=== PATIENT | female | born 1995 | race Caucasian/White ===

== ENCOUNTER 2022-09-17 21:14 | Observation (INO) | payer BC, SELFPAY ==
--- NOTE | ~2022-09-17 | US_ITS ---
Pelvic ultrasound. Clinical History: First trimester , vaginal bleeding Technique: Realtime transabdominal and transvaginal scanning of the pelvis was performed. Color flow Doppler and Doppler spectral analysis were performed. Findings: The uterus is anteverted. The endometrial stripe has a thickness of 20 mm. No intrauterine gestational sac is identified. There is fluid within the cervical canal. The right ovary measures 1.9 x 2.3 x 1.5 cm. No significant right ovarian or adnexal mass is seen. The left ovary measures 2.4 x 2.1 x 2.7 cm. No significant left ovarian or adnexal mass is seen. Vessel flow present in both ovaries on Doppler spectral analysis. There is no evidence of free fluid in the cul de sac. Impression: Thickened, heterogeneous endometrial stripe in the setting of positive test suggests sponta neous / in progress. Early normal or nonvisualized ectopic are fe lt to be less likely. Correlate clinically. Continued follow-up with serial beta hCG advised. Reviewed, dictated and finalized at location M. Impression: Thickened, heterogeneous endometrial stripe in the setting of positive pregnanc y test suggests spontaneous / in progress. Early normal pregnan cy or nonvisualized ectopic are felt to be less likely. Correlate cli nically. Continued follow-up with serial beta hCG advised.
[2022-09-17 21:16] VITALS: BP 125/73; PULSE 93; RESP 16; TEMP 36.1; O2SAT 100
--- NOTE | 2022-09-17 21:51 | ED.FEMALEGU ---
HPI - Female Genitourinary General Chief complaint: Vaginal Bleeding <Jessie Kwong PA-C - Last Filed: 09/18/22 01:09> Stated complaint: vaginal bleeding/10 weeks <Jessie Kwong PA-C - Last Filed: 09/18/22 01:09> Time Seen by Provider: 09/17/22 21:30 <Jessie Kwong PA-C - Last Filed: 09/18/22 01:09> History of Present Illness HPI Narrative: 27-year-old female G1, , LMP 2/5 who reports she is 10 weeks reports for vaginal bleeding that started yesterday. States the bleeding started as spotting and continued into today. She called her WALL ATTENDANT, Dr. German Martinez around 5pm advised the patient to come to the ED if she begins saturating 1 pad per hour. Patient reports since 5 PM she saturated 2 pads and the bleeding has increased. She has not had an ultrasound to confirm IUP. She is reporting associated nausea and suprapubic cramping. States she took 1g of Tylenol 4 hours ago with improvement. She denies dizziness, lightheadedness, back pain, urinary complaints, CP, SOB, concern for STDs. <Jessie Kwong PA-C - Last Filed: 09/18/22 01:09> Related Data Allergies/Adverse reactions: Allergies Allergy/AdvReac Type Severity Reaction Status Date / Time No Known Allergies Allergy Verified 09/17/22 21:15 <Jessie Kwong PA-C - Last Filed: 09/18/22 01:09> Review of Systems Review of Systems: CONSTITUTIONAL: Denies fever, chills EYES: Denies visual changes, redness, or discharge. ENT: Denies rhinorrhea, congestion, sore throat, or otalgia. CARDIOVASCULAR: Denies chest pain, palpitations, or edema. RESPIRATORY: Denies cough or dyspnea. GASTROINTESTINAL: See HPI GENITOURINARY: Denies dysuria or hematuria. SKIN: Denies rash or itching. MUSCULOSKELETAL: Denies back pain, joint pain, or myalgia. NEUROLOGIC: Denies headache, numbness, dizziness, or weakness. PSYCHIATRIC: Denies anxiety or depression. <Jessie Kwong PA-C - Last Filed: 09/18/22 01:09> Exam Narrative: GENERAL: Well-appearing, well-nourished, and in no acute distress. Patient resting comfortably in exam bed. She is pleasant and conversational HEAD: Normocephalic, atraumatic. EYES: PERRLA and EOMI. ENT: Nares clear, no rhinorrhea or epistaxis. Mucous membranes moist. Oropharynx without tonsillar hypertrophy exudate or other lesions. NECK: Supple. No adenopathy or masses. CHEST: Clear to auscultation. No respiratory distress. No wheezes rales or rhonchi HEART: Regular rate and rhythm. No murmur heard. Normal peripheral pulses. ABDOMEN: Soft, nontender, nondistended, normal active bowel sounds. : No lesions or rashes to external genitalia or vaginal canal. Blood clots visible in canal. Cervix not visualized due to blood. Multiple clots removed from vaginal vault. Cervix felt on bimanual and slightly opened, ~0.5cm. No CMT or adnexal masses appreciated. EXTREMITIES: Normal range of motion. No edema. SKIN: Warm, dry, no rash. NEURO: No focal deficits. Alert and oriented x3. PSYCH: Normal mood and affect. <Jessie Kwong PA-C - Last Filed: 09/18/22 01:09> Course FLEET SALES MANAGER/PA Physician Supervision This is a was performed by both a physician and an APC. I performed all aspects of the MDM as documented w/ the following additions: 27-year-old female coming in with vaginal bleeding. Transvaginal ultrasound showed prox of conception in the cervical canal. Given the ongoing bleeding the patient will be admitted to the hospital for D&C. All questions answered. Patient in agreement w/ disposition. <Israel Kaufman MD - Last Filed: 09/18/22 01:55> Vital Signs Vital signs: Vital Signs Temperature 96.9 F L 09/17/22 21:16 Pulse Rate 93 09/17/22 21:16 Respiratory Rate 16 09/17/22 21:16 Blood Pressure 125/73 09/17/22 21:16 Pulse Oximetry 100 09/17/22 21:16 Oxygen Delivery Room Air 09/17/22 21:16 Temperature 96.9 F L 09/17/22 21:16 Pulse Rate 86 09/18/22 00:36 Res
[2022-09-17] MEDS: METOCLOPRAMIDE HCL INJ 10 MG/2 ML VIAL IV PUSH (21:58)
[2022-09-17] MEDS: SODIUM CHLORIDE 0.9% IV 1,000 ML 999 ML IV CONT (21:58)
[2022-09-17 22:06] LABS: Basophils Percent Auto 0.2 % (0.2-1.2); Eosinophils Absolute Auto 0.1 K/mm3 (0-0.3); Eosinophils Percent Auto 0.6 % (0-4.4); Hematocrit 36.2 % (37.0-47.0); Hemoglobin 12.6 g/dL (12.0-15.0); Immature Granulocyte Absolute 0.04 K/mm3 (0.00-0.031); Immature Granulocyte Percent A 0.3 % (0-0.5); Lymphocytes Absolute Auto 1.54 K/mm3 (0.9-3.2); Lymphocytes Percent Auto 13.4 % (18.3-44.2); Mean Corpuscular HGB Conc 34.8 g/dl (32-36); Mean Corpuscular Hemoglobin 33.6 pg (26-34); Mean Corpuscular Volume 96.5 fl (80-100); Mean Platelet Volume 9.7 fl (7.4-10.4); Monocytes Absolute Auto 0.7 K/mm3 (0.1-0.6); Monocytes Percent Auto 6.1 % (2.6-8.5); Neutrophils Absolute Auto 9.2 K/mm3 (1.3-6.7); Neutrophils Percent Auto 79.4 % (45.5-73.1); Platelet Count Result 212 k/mm3 (150-375); Red Blood Count 3.75 M/mm3 (4.2-5.4); Red Cell Distribution Width 12.5 % (11.5-14.5); White Blood Count 11.5 K/mm3 (4.5-10.0)
[2022-09-17 23:02] LABS: Alanine Aminotransferase 13 U/L (6-35); Albumin Level 3.8 g/dL (3.5-5.1); Alkaline Phosphatase 49 U/L (38-126); Anion Gap 6 mmol/L (8-16); Aspartate Amino Transferase 21 U/L (14-36); Bilirubin,Total 0.5 mg/dL (0.2-1.3); Blood Urea Nitrogen 8 mg/dL (7-17); Calcium 8.3 mg/dL (8.4-10.2); Carbon Dioxide 22 mmol/L (22-30); Chloride 107 mmol/L (98-107); Estimated CRCL calculation 139 ml/min; Estimated Glomerular Filt Rate > 60; Glucose 94 mg/dL (65-110); Potassium 3.6 mmol/L (3.4-5.0); Sodium 135 mmol/L (137-145)
[2022-09-17 23:12] LABS: INR 1.1; Partial Thromboplastin Time 28.2 SECONDS (22.3-36.8); Prothrombin Time 13.9 Seconds (11.1-14.7)
[2022-09-17] MEDS: ACETAMINOPHEN 500 MG TABLET 1000 MG PO (23:18)
[2022-09-18] VITALS (11 sets, daily range): BP systolic 82–125; BP diastolic 54–76; PULSE 79–103; RESP 14–20; TEMP 36.1–37.1; O2SAT 94–100; BMI 24.2
[2022-09-18 00:05] LABS: Need Manual Microscopic Reviewed; Non Pathogenic Casts 0-2; RBC Urine >100 /hpf (0-2); Squamous Epithelial Cell Urine Occasional /hpf (Few)
[2022-09-18 00:07] LABS: Appearance Urine Cloudy (Clear); Color Urine Red (Yellow); pH Urine 5.5 (5.0-9.0)
[2022-09-18 00:08] LABS: Bilirubin Urine 2+ (Negative); Blood Urine 3+ (Negative); Glucose Urine UA Negative (Negative); Ketones Urine Negative (Negative); Leukocyte Esterase Ur 2+ LEU/UL (Negative); Nitrate Urine Positive (Negative); Protein Urine 3+ mg/dL (Negative); Urobilinogen Urine 0.2 mg/dL (<2.0)
[2022-09-18 00:09] LABS: Add Urine Microscopic? YES; Bacteria Urine 1+ /hpf
[2022-09-18] MEDS: SODIUM CHLORIDE 0.9% IV 1,000 ML 999 ML IV CONT (00:41)
[2022-09-18] MEDS: SODIUM CHLORIDE 0.9% IV 1,000 ML 125 ML IV CONT (00:50)
--- NOTE | 2022-09-18 06:22 | PM.IMHP ---
H&P: HPI History of Present Illness Date/Time: 09/18/22 06:22 Chief Complaint: Vaginal bleeding in early Narrative: this is 27-year-old 1 para 0 10 weeks since her last minutes. She was admitted with bleeding. Ultrasound shows retained products of conception and she will undergo suction D&C this morning. Risks and benefits reviewed [facility] Social History Social History Smoking status: Never smoker Lack of Transportation: No Lack of Food: Never True Current Housing: I Have Housing Concerned About Future Housing: No Difficulty Paying Gas/Electric Bills: No Difficulty Paying for Meds: No Currently Unemployed: No Education: Master's Degree or Higher Difficulty w/ Childcare or Family Care: No Spiritual care concerns: No Meds Home Medications and Allergies Home Medications Medication Instructions Recorded Confirmed Type No Home Medications 09/18/22 09/18/22 History Allergies Allergy/AdvReac Type Severity Reaction Status Date / Time No Known Allergies Allergy Verified 09/17/22 21:15 Vital Signs Vital Signs - 24 hr 09/17/22 21:16 09/18/22 00:36 09/18/22 02:00 Temperature 96.9 F L 96.9 F L Pulse Rate 93 86 97 Respiratory Rate 16 18 20 Blood Pressure 125/73 104/54 L 125/68 Pulse Oximetry 100 100 100 Oxygen Delivery Room Air Exam Const: General: cooperative, healthy appearing, comfortable and well groomed Nutritional Appearance: average body habitus Orientation/consciousness: oriented to person, oriented to place and oriented to time HENMT: Head: normal to inspection Resp: Effort & Inspection: normal respiratory effort Cardio: Rate: regular rate Rhythm: regular rhythm Heart sounds: S1 normal heart sound present and S2 normal heart sound present GI: Inspection: normal to inspection Auscultation: normal bowel sounds : Speculum Exam - Vagina: normal appearance of the vagina and vaginal bleeding Speculum Exam - Cervix: normal appearance of the cervix Bimanual exam- vagina & uterus: enlarged Bimanual Exam- Adnexa, other: normal adnexae H&P: Results Labs Labs: Short CBC 09/17/22 Range/Units 21:56 WBC 11.5 H (4.5-10.0) K/mm3 Hgb 12.6 (12.0-15.0) g/dL Hct 36.2 L (37.0-47.0) % Plt Count 212 (150-375) k/mm3 BMP 09/17/22 09/17/22 21:56 22:25 Sodium Cancelled 135 L Potassium Cancelled 3.6 Chloride Cancelled 107 Carbon Dioxide Cancelled 22 BUN Cancelled 8 Creatinine Cancelled 0.40 L Glucose Cancelled 94 Calcium Cancelled 8.3 L Liver Function 09/17/22 09/17/22 Range/Units 21:56 22:25 Total Bilirubin Cancelled 0.5 AST Cancelled 21 ALT Cancelled 13 Alkaline Phosphatase Cancelled 49 Albumin Cancelled 3.8 Urine 09/17/22 Range/Units 23:47 Urine Color Red H (Yellow) Urine Appearance Cloudy H (Clear) Urine pH 5.5 (5.0-9.0) Ur Specific [place] 1.010 (1.001-1.035) Urine Protein 3+ H (Negative) mg/dL Urine Glucose (UA) Negative (Negative) mg/dL Assessment and Plan Assessment and plan (1) Incomplete : Code(s): O03.4 - Incomplete spontaneous without complication Status: Acute Plan suction dilatation curettage
--- NOTE | 2022-09-18 06:24 | WPDHPUPDATE1 ---
History and Physical Update Update Date/Time: 09/18/22 06:24 History and Physical has been reviewed, including an updated exam of the patient. There are NO changes in the patient's condition. Risks, benefits, and alternatives have been discussed and questions answered. Patient agrees to proceed with procedure.
[2022-09-18 06:44] LABS: Hematocrit 35.2 % (37.0-47.0); Hemoglobin 11.8 g/dL (12.0-15.0)
--- NOTE | 2022-09-18 07:10 | WPDANESEPPF ---
Anes - Initial Pre Proc Eval Procedure: Operation Date: 09/18/22 07:30 Proposed Procedures p D&C Suction and Sharp - Vargas Martinez MD Date/Time: 09/18/22 07:10 Surgeon: Vargas Martinez MD Pre Op Diagnosis: , UTI Patient Data Age: 27 Gender: F Height: 1.6 m Weight: 62.1 kg Last Vital Signs Temp 97.2 F L 09/18/22 06:00 Pulse 92 09/18/22 06:00 Resp 18 09/18/22 06:00 BP 114/59 L 09/18/22 06:00 Pulse Ox 100 09/18/22 06:00 O2 Del Method Room Air 09/17/22 21:16 Allergies Allergy/AdvReac Type Severity Reaction Status Date / Time No Known Allergies Allergy Verified 09/17/22 21:15 Home Medications Medication Instructions Recorded Confirmed Type hydrocodone 5 mg-acetaminophen 325 1 tablet PO Q4H PRN pain #14 tabs 09/18/22 Rx mg tablet Laboratory Tests 09/17/22 09/17/22 09/17/22 21:56 21:56 22:25 WBC 11.5 K/mm3 H K/mm3 (4.5-10.0) RBC 3.75 M/mm3 L M/mm3 (4.2-5.4) Hgb 12.6 g/dL g/dL (12.0-15.0) Hct 36.2 % L % (37.0-47.0) MCV 96.5 fl fl (80-100) MCH 33.6 pg pg (26-34) MCHC 34.8 g/dl g/dl (32-36) RDW 12.5 % % (11.5-14.5) Plt Count 212 k/mm3 k/mm3 (150-375) MPV 9.7 fl fl (7.4-10.4) Immature Gran % (Auto) 0.3 % % (0-0.5) Neut % (Auto) 79.4 % H % (45.5-73.1) Lymph % (Auto) 13.4 % L % (18.3-44.2) [place] % (Auto) 6.1 % % (2.6-8.5) Eos % (Auto) 0.6 % % (0-4.4) Baso % (Auto) 0.2 % % (0.2-1.2) Lymph # (Auto) 1.54 K/mm3 K/mm3 (0.9-3.2) [place] # (Auto) 0.7 K/mm3 H K/mm3 (0.1-0.6) Eos # (Auto) 0.1 K/mm3 K/mm3 (0-0.3) Baso # (Auto) 0.0 K/mm3 K/mm3 (0.0-0.1) Abs Immat Gran (auto) 0.04 K/mm3 H K/mm3 (0.00-0.031) Absolute Neuts (auto) 9.2 K/mm3 H K/mm3 (1.3-6.7) Absolute Nucleated RBC 0.0 K/mm3 K/mm3 (0.0-0.012) Nucleated RBC % 0.0 % % (0.0-0.2) PT INR APTT Sodium Cancelled 135 mmol/L L mmol/L (137-145) Potassium Cancelled 3.6 mmol/L mmol/L (3.4-5.0) Chloride Cancelled 107 mmol/L mmol/L (98-107) Carbon Dioxide Cancelled 22 mmol/L mmol/L (22-30) Anion Gap Cancelled 6 mmol/L L mmol/L (8-16) BUN Cancelled 8 mg/dL mg/dL (7-17) Creatinine Cancelled 0.40 mg/dL L mg/dL (0.7-1.0) Estim Creat Clear Calc Cancelled 139 ml/min ml/min Estimated GFR Cancelled > 60 (59 - ) Glucose Cancelled 94 mg/dL mg/dL (65-110) Calcium Cancelled 8.3 mg/dL L mg/dL (8.4-10.2) Total Bilirubin Cancelled 0.5 mg/dL mg/dL (0.2-1.3) AST Cancelled 21 U/L U/L (14-36) ALT Cancelled 13 U/L U/L (6-35) Alkaline Phosphatase Cancelled 49 U/L U/L (38-126) Total Protein Cancelled 6.0 g/dL L g/dL (6.3-8.2) Albumin Cancelled 3.8 g/dL g/dL (3.5-5.1) Beta HCG, Quant 8347.50 mIU/ML mIU/ML Urine Color Urine Appearance Urine pH Ur Specific [place] Urine Protein Urine Glucose (UA) Urine Ketones Ur Blood (Man) Urine Nitrate Urine Bilirubin Urine Urobilinogen Add Ur Microanalysis Leukocyte Esterase Rfl Urine RBC Urine WBC Ur Squamous Epith Cells Urine Bacteria Urine Casts Blood Type Antibody Screen 09/17/22 09/17/22 09/17/22 22:51 22:51 23:47 WBC RBC Hgb Hct MCV MCH MCHC RDW Plt Count MPV Immature Gran % (Auto) Neut % (Aut
[2022-09-18] MEDS: SCOPOLAMINE 1.5 MG PATCH TRANSDERM (07:26)
[2022-09-18] MEDS: LACTATED RINGERS 1,000 ML 30 ML IV CONT (07:27)
[2022-09-18] MEDS: LIDOCAINE HCL 1% LOCAL INJ 20 ML VIAL 10 ML INFILTRATE (07:34)
--- NOTE | 2022-09-18 07:42 | W.PM.PROC2 ---
Procedure Note - Detailed Date of Procedure 09/18/22 Pre-op Diagnosis Incomplete , UTI Post-op Diagnosis Same Procedure Performed suction dilatation curettage Surgeon Vargas Martinez MD Anesthesia MAC and Local Indications a 27-year-old female in 1st trimester with incomplete AB Findings tissue consistent with products of conception. Description of Procedure Patient was prepped draped in normal sterile fashion placed in the dorsal lithotomy position. Under excellent IV sedation weighted speculum placed in posterior fornix vagina. Anterior lip of the cervix grasped with single-tooth tenaculum. Uterus sounded to 9cm. Serial dilatation with fragmented dilators performed followed by passes the 10. Suction curette of moderate amount of tissue was removed. When a good grating sound was heard the instruments were withdrawn patient. The patient awakened went to recovery in satisfactory condition. All sponge, needle, instrument counts were correct. There were no immediate complications and the patient is Rh positive Estimated Blood Loss 25 Drains No Packing No Pathology Yes Complications No immediate complications Condition Stable Disposition PACU
--- NOTE | 2022-09-18 07:44 | PM.DS ---
DS: Admitting Diagnosis Discharge Date 09/18/2022 Admitting Diagnosis incomplete miscarriage DS: Discharge Diagnosis Discharge Diagnosis (1) Incomplete : Code(s): O03.4 - Incomplete spontaneous without complication Status: Acute (2) Urinary tract infection: Qualifiers: Hematuria presence: with hematuria Urinary tract infection type: acute cystitis Qualified Code(s): N30.01 - Acute cystitis with hematuria Code(s): N39.0 - Urinary tract infection, site not specified Status: Acute DS: Summary Hospital Course Reason for hospitalization: patient was admitted with vaginal bleeding through the ER Hospital Course: patient underwent ultrasound which showed retained products of conception. She underwent suction dilatation curettage on 09/18/2022. Her hospital course was unremarkable. She remained afebrile. She was up, voiding without difficulty, eating regular diet, and generally without complaints. Time Spent with Patient Time attestation: Total time spent providing and/or coordinating discharge services: Exam Const: General: cooperative, healthy appearing and comfortable Nutritional Appearance: average body habitus Orientation/consciousness: oriented to person, oriented to place and oriented to time Resp: Effort & Inspection: normal respiratory effort Cardio: Rate: regular rate Rhythm: regular rhythm Heart sounds: S1 normal heart sound present and S2 normal heart sound present GI: Inspection: normal to inspection Auscultation: normal bowel sounds DS: Data Data Completed and Pending Labs on day of discharge: Labs from last 24 hours 09/18/22 09/17/22 09/17/22 06:22 23:47 22:51 WBC RBC Hgb 11.8 L Hct 35.2 L MCV MCH MCHC RDW Plt Count MPV Immature Gran % (Auto) Neut % (Auto) Lymph % (Auto) [place] % (Auto) Eos % (Auto) Baso % (Auto) Lymph # (Auto) [place] # (Auto) Eos # (Auto) Baso # (Auto) Abs Immat Gran (auto) Absolute Neuts (auto) Absolute Nucleated RBC Nucleated RBC % PT 13.9 INR 1.1 APTT 28.2 Sodium Potassium Chloride Carbon Dioxide Anion Gap BUN Creatinine Estim Creat Clear Calc Estimated GFR Glucose Calcium Total Bilirubin AST ALT Alkaline Phosphatase Total Protein Albumin Beta HCG, Quant Urine Color Red H Urine Appearance Cloudy H Urine pH 5.5 Ur Specific [place] 1.010 Urine Protein 3+ H Urine Glucose (UA) Negative Urine Ketones Negative Ur Blood (Man) 3+ H Urine Nitrate Positive H Urine Bilirubin 2+ H Urine Urobilinogen 0.2 Add Ur Microanalysis Reviewed Leukocyte Esterase Rfl 2+ H Urine RBC >100 H Urine WBC 11-20 H Ur Squamous Epith Cells Occasional Urine Bacteria 1+ Urine Casts 0-2 Blood Type Antibody Screen 09/17/22 09/17/22 09/17/22 22:51 22:25 21:56 WBC RBC Hgb Hct MCV MCH MCHC RDW Plt Count MPV Immature Gran % (Auto) Neut % (Auto) Lymph % (Auto) [place] % (Auto) Eos % (Auto) Baso % (Auto) Lymph # (Auto) [place] # (Auto) Eos # (Auto) Baso # (Auto) Abs Immat Gran (auto) Absolute Neuts (auto) Absolute Nucleated RBC Nucleated RBC % PT INR APTT Sodium 135 L Cancelled Potassium 3.6 Cancelled Chloride 107 Cancelled Carbon Dioxide 22 Cancelled Anion Gap 6 L Cancelled BUN 8 Cancelled Creatinine 0.40 L Cancelled Estim Creat Clear Calc 139 Cancelled Estimated GFR > 60 Cancelled Glucose 94 Cancelled Calcium 8.3 L Cancelled Total Bilirubin 0.5 Cancelled AST 21 Cancelled ALT 13 Cancelled Alkaline Phosphatase 49 Cancelled Total Protein 6.0 L Cancelled Albumin 3.8 Cancelled Beta HCG, Quant 8347.50 Urine Color Urine Appearance Urine pH Ur Specific [place] Urin
[2022-09-18] MEDS: POLYSACCHARIDE IRON COMPLEX 150 MG CAPSULE PO (10:22)
[2022-09-18] MEDS: MULTIVIT/MIN/PREN/FOL AC/IRON TABLET 1 TAB PO (10:23)
[2022-09-18] MEDS: TETANUS,DIPHTHERIA,AC PERTUSSIS ADULT (0.5 ML) BOOSTRIX IM (10:23)
== END 2022-09-18 11:05 | disposition home or self-care (01) ==
LOC: ANHED 09-18 00:34 → ANH3MEDSUR 09-18 01:33
PROVIDERS: Admitting Provider Obstetrics & Gynecology; Emergency Provider Physician Assistant; Visit Provider Obstetrics & Gynecology
PROC: (CPT 59812; principal; 2022-09-18 07:30)
DX: O03.4 Incomplete spontaneous abortion without complication (principal); O23.41 Unspecified infection of urinary tract in pregnancy, first trimester; N39.0 Urinary tract infection, site not specified; Z23 Encounter for immunization; Z3A.10 10 weeks gestation of pregnancy
CPT/HCPCS: 59812; 36415; 76801; 76817; 80053; 81001; 84702; 85014; 85018; 85025; 85610; 85730; 86850; 86900; 86901; 87086; 88305; 90715; 96361; 96365; 96375; 99285; A9270; G0378; J0696; J2250; J2405; J2704; J2765; J3010; J7030; J7120

== ENCOUNTER 2022-09-29 00:27 | Day surgery (SDC) | payer BC, SELFPAY ==
[2022-09-27 12:40] VITALS: BMI 23.9
--- NOTE | 2022-09-27 12:45 | PC.NURSE ---
Addendum entered by Shayla Quesada RN 09/27/22 12:49: NO MORE VITAMINS/SUPPLEMENTS UNTIL AFTER SURGERY. Original Note: Report to the Outpatient Waiting Room, entrance under the green pavilion located off [facility], at time 1330 on date 09/29/22. Planned Procedure Time: 1530. Time changes happen often and if your time is changed the preop area will call you the afternoon before. - You and your visitor will be asked to self-screen and do not enter if you have any COVID symptoms. - A mask is optional within the hospital at this time. Patients may have clear liquids (water, carbonated beverages, clear teas, apple juice) until 3 hours prior to surgery with a maximum of 20 ounces. - No food from midnight until time of surgery Take the following medications with a SIP of water the morning of surgery: NONE DO NOT STOP ANY OF YOUR OTHER PRESCRIPTION MEDICATIONS PRIOR TO SURGERY EXCEPT THE FOLLOWING Medications to discontinue per physician: N/A Date to take last dose: N/A Please no make-up, nail ivorian, hairspray, perfume, deodorant, or body powder the day of surgery. No jewelry (including any body piercings) or valuables the day of surgery, leave them at home. Please take a shower or bath the night before, or the morning of, surgery with an antibacterial soap. Wear comfortable, loose fitting clothing. - Jewelry must be removed prior to entering the operating room. Rings and piercings that are not removed may be cut off. - The hospital will not accept responsibility for valuables. - Please leave all valuables, including medications, at home the day of surgery. If you are going home after surgery, a licensed regional company hazmat tanker driver must drive you home. - NO public transportation without another adult if you receive anesthesia. - We recommend that an adult stay with you for 24 hours following discharge. - We also recommend that you do not drive, make important decision, drink alcoholic beverages, or take any drugs that were not prescribed by your health care provider for at least 24 hours after your discharge time. Follow any additional instructions given to you from your surgeon. If you or anyone in your household have experienced Covid symptoms in the past week, please notify your surgeon or the nurse liaison at the phone number below for possible testing. Telephone instructions given to PT - RD MONTEMAYOR and asked if any additional questions and then verbalized understanding. Patient advised to call surgeon office or pre surgery nurse liaison [phone] if any additional questions.
--- NOTE | 2022-09-28 16:19 | P.HP_ITS ---
H&P: HPI History of Present Illness Date/Time: 09/28/22 16:19 Chief Complaint: vaginal bleeding Narrative: a 27-year-old female readmitted for suction D&C. She underwent D&C week ago and products conception were found. She was seen in the office and noted to be bleeding moderately heavy. A piece of placenta was seen extruding from the cervix and removed. Her hemoglobin was 12+ but she continues to bleed and ultrasound shows what appears to be some tissue in the uterus. Risks and benefits were reviewed again she had all questions answered. She asked to proceed [facility] Social History Social History Smoking status: Never smoker Alcohol intake: current Alcohol use details: RARE WHEN NOT Substance use: never Substance use type: does not use Lack of Transportation: No Lack of Food: Never True Current Housing: I Have Housing Concerned About Future Housing: No Difficulty Paying Gas/Electric Bills: No Difficulty Paying for Meds: No Currently Unemployed: No Education: Master's Degree or Higher Difficulty w/ Childcare or Family Care: No Living arrangements: with family Spiritual care concerns: No Meds Home Medications and Allergies Home Medications Medication Instructions Recorded Confirmed Type ferrous sulfate 325 mg (65 mg 325 mg PO DAILY 09/27/22 09/27/22 History iron) tablet (Iron (ferrous sulfate)) ibuprofen 800 mg tablet 800 mg PO TID PRN Pain 09/27/22 09/27/22 History prenat.vits,jen,yte-lnbc-ilddi 1 tablet PO DAILY 09/27/22 09/27/22 History Allergies Allergy/AdvReac Type Severity Reaction Status Date / Time acetaminophen [From [place]] Allergy Itching Verified 09/27/22 12:39 hydrocodone [From [place]] Allergy Itching Verified 09/27/22 12:39 Exam Const: General: cooperative, healthy appearing, comfortable and well groomed Nutritional Appearance: average body habitus Orientation/consciousness: oriented to person, oriented to place and oriented to time HENMT: Head: normal to inspection Resp: Effort & Inspection: normal respiratory effort Cardio: Rate: regular rate Rhythm: regular rhythm Heart sounds: S1 normal heart sound present and S2 normal heart sound present GI: Inspection: normal to inspection Auscultation: normal bowel sounds : External Female Exam: normal external appearance Speculum Exam - Vagina: normal appearance of the vagina and vaginal bleeding Speculum Exam - Cervix: Cervical os open Bimanual exam- vagina & uterus: enlarged Assessment and Plan Assessment and plan (1) Incomplete : Code(s): O03.4 - Incomplete spontaneous without complication Status: Acute Plan suction dilatation and curettage
--- NOTE | 2022-09-29 06:03 | WPDHPUPDATE1 ---
History and Physical Update Update Date/Time: 09/29/22 06:03 History and Physical has been reviewed, including an updated exam of the patient. There are NO changes in the patient's condition. Risks, benefits, and alternatives have been discussed and questions answered. Patient agrees to proceed with procedure.
[2022-09-29 13:25] VITALS: BP 116/86; PULSE 103; RESP 16; TEMP 37.1; O2SAT 100; BMI 24.0
--- NOTE | 2022-09-29 14:14 | P.PNAN_ITS ---
Anes - Initial Pre Proc Eval Procedure: Operation Date: 09/29/22 15:30 Proposed Procedures p Suction Dilation and Curettage - Vargas Martinez MD Date/Time: 09/29/22 14:14 Surgeon: Vargas Martinez MD Pre Op Diagnosis: Retained Products Patient Data Age: 27 Gender: F Height: 1.6 m Weight: 61.25 kg Allergies Allergy/AdvReac Type Severity Reaction Status Date / Time hydrocodone [From [place]] Allergy Itching Verified 09/27/22 12:39 Home Medications Medication Instructions Recorded Confirmed Type ferrous sulfate 325 mg (65 mg 325 mg PO DAILY 09/27/22 09/27/22 History iron) tablet (Iron (ferrous sulfate)) ibuprofen 800 mg tablet 800 mg PO TID PRN Pain 09/27/22 09/27/22 History prenat.vits,jen,wib-[id number] 1 tablet PO DAILY 09/27/22 09/27/22 History Patient hx anesthesia problems: post op nausea/vomiting Family hx anesthesia problems: none Results Review: All pre-operative results and documents have been reviewed as part of the pre- operative evaluation. [facility] Social History Social History Smoking status: Never smoker Alcohol intake: current Alcohol use details: RARE WHEN NOT Substance use: never Substance use type: does not use Lack of Transportation: No Lack of Food: Never True Current Housing: I Have Housing Concerned About Future Housing: No Difficulty Paying Gas/Electric Bills: No Difficulty Paying for Meds: No Currently Unemployed: No Education: Master's Degree or Higher Difficulty w/ Childcare or Family Care: No Living arrangements: with family Spiritual care concerns: No Anes - Eval Final PreProcedure Day of Procedure 09/29/22 14:14 Patient weight: normal Heart: regular rate and rhythm Lungs: clear to auscultation Airway: Mallampati scale class II Neurological: alert and oriented Last oral intake: >/= 8 hours ASA classification: II Emergent: no Anesthetic plan: proceed Anesthesia type and monitoring: general GIVS and standard monitoring Results Review: All pre-operative results and documents have been reviewed as part of the pre- operative evaluation. Informed Consent: The patient's anesthetic plan and its attendant risks and benefits were discussed with the patient/family/POA. Questions were solicited and answers provided to the satisfaction of the patient/family/POA.
[2022-09-29] MEDS: ACETAMINOPHEN 500 MG TABLET 1000 MG PO (14:30)
[2022-09-29] MEDS: LACTATED RINGERS 1,000 ML 30 ML IV CONT (14:32)
[2022-09-29] MEDS: SCOPOLAMINE 1.5 MG PATCH TRANSDERM (14:36)
[2022-09-29] MEDS: ceFAZolin SODIUM 1 GM VIAL IV PUSH (15:55)
[2022-09-29] MEDS: LIDOCAINE HCL 1% LOCAL INJ 20 ML VIAL 10 ML INFILTRATE (15:56)
--- NOTE | 2022-09-29 16:05 | P.OP_ITS ---
Procedure Note - Detailed Date of Procedure 09/29/22 Pre-op Diagnosis Retained Products Post-op Diagnosis Same Procedure Performed Suction dilatation curettage Surgeon Vargas Martinez MD Anesthesia MAC and Local Indications this is a 27-year-old female with retained products of conception following miscarriage Findings uterus sounded 9cm. Small chunk of placental tissue Description of Procedure patient was prepped draped in normal sterile fashion placed in the dorsal lithotomy position. Under excellent IV sedation weighted speculum placed in posterior fornix of vagina. Anterior lip of the cervix grasped with a single- tooth tenaculum. 2.5cc of 1% xylocaine anesthesia placed at 2, 4, 8:10 a.m. of the cervix. Uterus sounded to 9cm. Serial dilatation with fragmented dilators performed followed by passage of the 10. Suction curette a moderate soak of placental like tissue was removed. When no further tissue removed and a grating sound was heard the instruments withdrawn. The patient was awakened went to recovery in satisfactory condition. Blood loss was estimated at5cc. All sponge, needle, instrument counts were correct. There were no immediate complications Estimated Blood Loss 5 Drains No Packing No Pathology Yes Complications No immediate complications Condition Stable Disposition PACU
[2022-09-29 16:11] VITALS: BP 111/67; PULSE 98; RESP 12; O2SAT 100
[2022-09-29 16:40] VITALS: BP 106/71; PULSE 85; RESP 14; O2SAT 100
== END 2022-09-29 17:09 | disposition home or self-care (01) ==
PROVIDERS: Visit Provider Obstetrics & Gynecology
PROC: (CPT 59812; principal; 2022-09-29 15:30)
DX: O03.4 Incomplete spontaneous abortion without complication (principal)
CPT/HCPCS: 59812; 88305; A9270; J0690; J2001; J2250; J2405; J2704; J3010; J7120

== ENCOUNTER 2023-09-13 06:30 | Inpatient (IN) | payer BC, SELFPAY ==
[2023-09-13] VITALS (229 sets, daily range): BP systolic 91–142; BP diastolic 40–106; PULSE 78–201; RESP 17–19; TEMP 36.6–37.2; O2SAT 76–100; BMI 29.2
[2023-09-13] MEDS: LACTATED RINGERS 1,000 ML 125 ML IV CONT ×3 (07:19→18:53)
--- NOTE | 2023-09-13 07:26 | P.HP_ITS ---
H&P: HPI History of Present Illness Date/Time: 09/13/23 07:26 Chief Complaint: Term Narrative: this is a 28-year-old 2 para 0 whose EDC is 09/11/2023 confirmed by 7 week ultrasound presents at 40 2 7th weeks gestation for induction of labor. She is negative for group B strep in her has been otherwise uncomplicated. [facility] Family History Family History Other Patient denies significant medical history Social History Social History Smoking status: Never smoker Alcohol intake: current Alcohol use details: RARE WHEN NOT Substance use: never Substance use type: does not use Lack of Transportation: No Lack of Food: Never True Current Housing: I Have Housing Concerned About Future Housing: No Difficulty Paying Gas/Electric Bills: No Difficulty Paying for Meds: No Currently Unemployed: No Education: Master's Degree or Higher Difficulty w/ Childcare or Family Care: No Living arrangements: with family Spiritual care concerns: No Meds Home Medications and Allergies Home Medications Medication Instructions Recorded Confirmed Type ferrous sulfate 325 mg (65 mg 325 mg PO BID 09/27/22 09/27/22 History iron) tablet (Iron (ferrous sulfate)) prenat.vits,jen,vsu-gynb-bjhio 1 tablet PO DAILY 09/27/22 09/29/22 History Allergies Allergy/AdvReac Type Severity Reaction Status Date / Time hydrocodone [From [place]] Allergy Itching Verified 08/20/23 14:40 Vital Signs Vital Signs - 24 hr 09/13/23 07:15 Pulse Rate 104 H Blood Pressure 130/81 Exam Const: General: cooperative, healthy appearing and comfortable Nutritional Appearance: average body habitus Orientation/consciousness: oriented to person, oriented to place and oriented to time Resp: Effort & Inspection: normal respiratory effort Cardio: Rate: regular rate Rhythm: regular rhythm Heart sounds: S1 normal heart sound present and S2 normal heart sound present GI: Inspection: normal to inspection ( Soft gravid uterus) : External Female Exam: normal external appearance Speculum Exam - Vagina: normal appearance of the vagina Speculum Exam - Cervix: normal sylvia earance of the cervix ( cervix 3/75/2. Attempted a ROM but no fluid. FHTs reassuring) Assessment and Plan Assessment and plan (1) Term : Code(s): Z34.90 - Encounter for supervision of normal , unspecified, unspecified trimester Status: Acute Plan medical induction of labor. Spontaneous vaginal delivery is expected. She is an epidural candidate
--- NOTE | 2023-09-13 07:27 | LDADM ---
This patient, Priti Schofield, was admitted to Labor/Delivery/Recovery 103 on 09/13/23 at 06:30. Plans for labor, pain management and were discussed with patient. Patient/family oriented to hospital policies and general routines including ID bracelet, bed and alarms, visiting hours, pain management, procedures, bathroom and other care routines, personal items, smoking policy, room service/diet and guest tray routines, security routines, and visiting hours. Patient/Family are encouraged to report perceived risks to care and to ask questions if they do not understand what they are told or what they should do. See OBIX for further documentation.
[2023-09-13] MEDS: OXYTOCIN 30 UNITS/NS 500 ML 30 UNITS/500 ML BAG 6 UNITS IV CONT (07:43)
[2023-09-13 08:18] LABS: Basophils Percent Auto 0.2 % (0.2-1.2); Eosinophils Absolute Auto 0.1 K/mm3 (0-0.3); Eosinophils Percent Auto 0.7 % (0-4.4); Hematocrit 33.5 % (37.0-47.0); Hemoglobin 11.1 g/dL (12.0-15.0); Immature Granulocyte Absolute 0.06 K/mm3 (0.00-0.031); Immature Granulocyte Percent A 0.7 % (0-0.5); Lymphocytes Absolute Auto 1.51 K/mm3 (0.9-3.2); Lymphocytes Percent Auto 17.1 % (18.3-44.2); Mean Corpuscular HGB Conc 33.1 g/dl (32-36); Mean Corpuscular Hemoglobin 31.9 pg (26-34); Mean Corpuscular Volume 96.3 fl (80-100); Mean Platelet Volume 11.1 fl (7.4-10.4); Monocytes Absolute Auto 0.5 K/mm3 (0.1-0.6); Monocytes Percent Auto 5.7 % (2.6-8.5); Neutrophils Absolute Auto 6.7 K/mm3 (1.3-6.7); Neutrophils Percent Auto 75.6 % (45.5-73.1); Platelet Count Result 117 k/mm3 (150-375); Red Blood Count 3.48 M/mm3 (4.2-5.4); Red Cell Distribution Width 18.2 % (11.5-14.5); White Blood Count 8.8 K/mm3 (4.5-10.0)
[2023-09-13 09:02] LABS: Rapid Plasma Reagin Non-Reactive (NonReactive)
--- NOTE | 2023-09-13 11:53 | PM.OBPNLAB ---
Pain Control Date/time seen: 09/13/23 11:53 Pain control: tolerating well and epidural Pelvic Exam Dilation (cm): 4 Effacement (%): 75 station: -1 Amniotic membrane status: Leaking Contractions Monitor mode: Internal
--- NOTE | 2023-09-13 16:01 | PM.OBPNLAB ---
Pain Control Date/time seen: 09/13/23 16:01 Pain control: tolerating well Pelvic Exam Dilation (cm): 4 Effacement (%): 75 station: -1 Amniotic membrane status: Leaking Contractions Monitor mode: Internal Contraction frequency: 3 Contraction pattern: Regular
--- NOTE | 2023-09-13 17:36 | WPDANESEPP ---
Anes - Eval Pre Procedure Procedure: labor epidural Date/Time: 09/13/23 17:36 Surgeon: ken Preop Diagnosis: pain during labor Pre Op Diagnosis: IOL Patient Data Age: 28 Gender: F Height: 1.6 m Weight: 75 kg Last Vital Signs Temp 36.8 C 09/13/23 15:30 Pulse 105 H 09/13/23 17:30 Resp 18 09/13/23 09:28 BP 124/78 09/13/23 17:30 Pulse Ox 100 09/13/23 17:35 O2 Del Method Room Air 09/13/23 07:27 Allergies Allergy/AdvReac Type Severity Reaction Status Date / Time hydrocodone [From [place]] Allergy Itching Verified 09/13/23 09:47 Home Medications Medication Instructions Recorded Confirmed Type ferrous sulfate 325 mg (65 mg 325 mg PO BID 09/27/22 09/13/23 History iron) tablet (Iron (ferrous sulfate)) prenat.vits,jen,ozs-wwbc-tnxsv 1 tablet PO DAILY 09/27/22 09/13/23 History Laboratory Tests 09/13/23 09/13/23 06:43 06:44 WBC 8.8 K/mm3 (4.5-10.0) RBC 3.48 L M/mm3 (4.2-5.4) Hgb 11.1 L g/dL (12.0-15.0) Hct 33.5 L % (37.0-47.0) MCV 96.3 fl (80-100) MCH 31.9 pg (26-34) MCHC 33.1 g/dl (32-36) RDW 18.2 H % (11.5-14.5) Plt Count 117 L k/mm3 (150-375) MPV 11.1 H fl (7.4-10.4) Immature Gran % (Auto) 0.7 H % (0-0.5) Neut % (Auto) 75.6 H % (45.5-73.1) Lymph % (Auto) 17.1 L % (18.3-44.2) [place] % (Auto) 5.7 % (2.6-8.5) Eos % (Auto) 0.7 % (0-4.4) Baso % (Auto) 0.2 % (0.2-1.2) Lymph # (Auto) 1.51 K/mm3 (0.9-3.2) [place] # (Auto) 0.5 K/mm3 (0.1-0.6) Eos # (Auto) 0.1 K/mm3 (0-0.3) Baso # (Auto) 0.0 K/mm3 (0.0-0.1) Abs Immat Gran (auto) 0.06 H K/mm3 (0.00-0.031) Absolute Neuts (auto) 6.7 K/mm3 (1.3-6.7) Absolute Nucleated RBC 0.000 K/mm3 (0.0-0.012) Nucleated RBC % 0.0 % (0.0-0.2) RPR Non-reactive (NonReactive) Blood Type A Positive Antibody Screen Negative Patient hx anesthesia problems: post op nausea/vomiting Family hx anesthesia problems: none Results Review: All pre-operative results and documents have been reviewed as part of the pre-operative evaluation. [facility] Family History Family History Other Patient denies significant medical history Social History Social History Smoking status: Never smoker Second hand tobacco smoke exposure: No Alcohol intake: current Alcohol use details: RARE WHEN NOT Substance use: never Substance use type: does not use Do You Feel Safe in your Home?: Yes Lack of Transportation: No Lack of Food: Never True Current Housing: I Have Housing Concerned About Future Housing: No Difficulty Paying Gas/Electric Bills: No Difficulty Paying for Meds: No Currently Unemployed: No Education: Master's Degree or Higher Difficulty w/ Childcare or Family Care: No Living arrangements: with family Spiritual care concerns: No Exam Day of Procedure 09/13/23 17:36
[2023-09-13] MEDS: FAMOTIDINE 20 MG/2 ML VIAL IV PUSH (21:00)
--- NOTE | 2023-09-13 21:37 | PM.OBPNLAB ---
Pain Control Date/time seen: 09/13/23 21:37 Pain control: tolerating well and epidural Comments: All episodes a deceleration noted is now recovered with fluids resuscitation. 0 proceed low-transverse section. Risks and benefits reviewed with mother Pelvic Exam Dilation (cm): 4 Effacement (%): 75 station: -1 Amniotic membrane status: Leaking Contractions Monitor mode: Internal Contraction frequency: 3 Contraction pattern: Regular
--- NOTE | 2023-09-13 21:38 | PM.DS ---
DS: Admitting Diagnosis Discharge Date 09/16/2023 Admitting Diagnosis term DS: Discharge Diagnosis Discharge Diagnosis (1) Term : Code(s): Z34.90 - Encounter for supervision of normal , unspecified, unspecified trimester Status: Acute (2) intolerance to labor, delivered, current hospitalization: Code(s): O77.9 - Labor and delivery complicated by stress, unspecified Status: Acute DS: Summary Hospital Course Reason for hospitalization: Patient was admitted for induction of labor 4113 and Hospital Course: patient underwent low-transverse section. Her hospital course was unremarkable. She remained afebrile. She was up, eating regular diet, ambulating, voiding without difficulty, gentle without complaints. Time Spent with Patient Time attestation: Total time spent providing and/or coordinating discharge services: Exam Const: General: cooperative, healthy appearing and comfortable Nutritional Appearance: average body habitus Orientation/consciousness: oriented to person, oriented to place and oriented to time HENMT: Head: normal to inspection Resp: Effort & Inspection: normal respiratory effort Cardio: Rate: regular rate Rhythm: regular rhythm Heart sounds: S1 normal heart sound present and S2 normal heart sound present GI: Inspection: normal to inspection and incision ( wound clean dry and intact) DS: Data Data Completed and Pending Labs on day of discharge: Labs from last 24 hours 09/13/23 09/13/23 06:44 06:43 WBC 8.8 RBC 3.48 L Hgb 11.1 L Hct 33.5 L MCV 96.3 MCH 31.9 MCHC 33.1 RDW 18.2 H Plt Count 117 L MPV 11.1 H Immature Gran % (Auto) 0.7 H Neut % (Auto) 75.6 H Lymph % (Auto) 17.1 L [place] % (Auto) 5.7 Eos % (Auto) 0.7 Baso % (Auto) 0.2 Lymph # (Auto) 1.51 [place] # (Auto) 0.5 Eos # (Auto) 0.1 Baso # (Auto) 0.0 Abs Immat Gran (auto) 0.06 H Absolute Neuts (auto) 6.7 Absolute Nucleated RBC 0.000 Nucleated RBC % 0.0 RPR Non-reactive Blood Type A Positive Antibody Screen Negative Discharge Plan Discharge Attending physician on discharge: Vargas Medina Discharging Clinician: Cintia Reyes Patient Disposition: Home, Self-Care Activity: may shower and pelvic rest Diet: heart healthy Wound Care Instructions: follow printed instructions Discharge Instructions: Education: Mom and Baby Guide Given to: Mother Follow-Up: Call your delivering provider's office for an appointment to be seen in: 1 Week Mom and baby should come to the [facility] for the follow-up appointment. Appointment Date/Time: Sunday, September 17, 2023 at 3:30 pm What to expect at your follow-up visit: Physical Assessment Call [phone] if you are unable to keep your appointment time. BREAST CARE: * Wear a snug supportive bra. * For engorgement discomfort: Breast Feeding: * Apply warm moist washcloths * Express milk as needed to relieve engorgement * Wear loose clothing Bottle Feeding: * May apply ice packs * For sore nipples: * Identify correct latch-on * Apply warm moist washcloths before and after nursing * Air dry nipples after nursing * May apply Lansinoh cream to nipples ABDOMINAL INCISION: (if applicable) * Allow incision to air dry * Do NOT use lotions for powders on your incision * When showering, allow soap and water to run over the incision, but do not wash incision EPISIOTOMY/PERINEAL CARE: * Until bleeding stops, use your karen bottle after urinating * Change your pad frequently throughout the day * You may take sitz baths several times a day (fill your bathtub with warm water and soak for 20 minutes.) Do NOT bathe in the water * No tub baths until seen by your physician - You may shower ACTIVITY: * Rest as much as
[2023-09-13] MEDS: ONDANSETRON INJ 4 MG/2 ML VIAL IV PUSH (21:40)
--- NOTE | 2023-09-13 22:02 | P.PNAN_ITS ---
Anes - Eval Final PreProcedure Day of Procedure 09/13/23 22:02 Patient weight: overweight Heart: regular rate and rhythm Lungs: clear to auscultation and normal air movement Airway: Mallampati scale class II Neurological: alert and oriented Last oral intake: >/= 8 hours ASA classification: II Emergent: no Anesthetic plan: proceed Anesthesia type and monitoring: regional epidural and standard monitoring Other findings: intolerance to labor - C section Results Review: All pre-operative results and documents have been reviewed as part of the pre- operative evaluation. Informed Consent: The patient's anesthetic plan and its attendant risks and benefits were discussed with the patient/family/POA. Questions were solicited and answers provided to the satisfaction of the patient/family/POA.
--- NOTE | 2023-09-13 22:41 | W.PM.OBCSD ---
OB - Delivery Note Procedure Delivery date: 09/13/23 Pre-op diagnosis: Failed Induction of Labor and Other ( intolerance to labor) Post-op Diagnosis: Same Induction method: AROM Delivery augmentation: Pitocin Delivery monitor: External FHT, Internal FHT and Internal Uterine Prior to decision for section, ACOG/SMFM labor guidelines were considered and discussed with the patient and staff. Decision made to proceed with the section.: Yes Procedure Performed: Primary Surgeon: Vargas Martinez MD Anesthesia type: Epidural Description of Procedure/Findings: visualize the reduction labor earlier a removed for over 24. She had a [id number] head prolonged late deceleration which responded to repositioning fluid resuscitation and oxygen. A she had an intrauterine pressure catheter in her been very little change related non-reassuring findings decision was made for low-transverse section. The baby did recover to she was prepped and draped in normal sterile fashion placed in the supine position. Her epidural was bolus and a Pfannenstiel incision made progressive layers of fascia. Fascia incised midline cure alka Goodman bilaterally. Underlying muscles sharply dissected. Parietal peritoneum low by Diana clamps and by sharp dissection carried superiorly and inferiorly dome of the bladder. Bladder blade placed. Bladder flap formed. Laterally returned. Low-transverse incision made the head delivered there position. Anterior posterior shoulder delivered spontaneously. Cord clamped cut and passed off the table excellent cry given Apgars of 8 [id number] and 8 [id number]. Cord blood was drawn. Fluid delivered intact manually uterus delivered from the abdomen wrapped in a moist towel. After assuring no membranes or debris remained in the uterus, uterus closed with continuous running locking 0 Vicryl from lateral edge to lateral edge. Follow this followed by 2nd imbricating running locking 0 Vicryl from lateral edge to lateral edge. hemostasis was assured. The uterus was somewhat boggy and 20units Pitocin placed in the EBL from the uterus. Methergine was given IM. Uterus returned the abdomen after inspecting the uterine incision. The tubes and ovaries appeared within normal limits. The laps removed and accounted for. The fascia closed with continuous running 0 Vicryl from lateral edge to lateral edge. This followed by closing the skin with 4-0 Monocryl glue. QBL was 745. Patient and baby are doing fine at the time of dictation there were no immediate complications all sponge, needle, instrument counts were correct Specimen: No Estimated Blood Loss: 745 Drains: No Packing: No Pathology: None sent Complications: No immediate complications Condition: Stable Disposition: Floor Baby Date of : 09/13/23 Time of : 22:15 Weeks of gestation at delivery: 39 gender: Female Weight (pounds): 7 Weight (ounces): 12 presentation: vertex position: Right Occiput Anterior Placenta delivery description: Manual Removal Cord Vessel Description: 3 Vessels score one minute: 8 score five minutes: 8
[2023-09-13] MEDS: ceFAZolin 2 GM/D5W 50 ML 2 GM/50 ML BAG IVPB (22:50)
[2023-09-14] VITALS (10 sets, daily range): BP systolic 98–117; BP diastolic 37–73; PULSE 73–113; RESP 16–18; TEMP 36.7–37.3; O2SAT 98–99
[2023-09-14] MEDS: KETOROLAC 30 MG/ML VIAL (*BKC) (00:31)
--- NOTE | 2023-09-14 01:47 | PC.NURSE ---
heart tones from c/s did not flow over. Copy of strip placed in Physical maternal chart. Heart tones noted to be 150 with moderate variability in OR prior to section.
[2023-09-14 05:51] LABS: Basophils Percent Auto 0.2 % (0.2-1.2); Eosinophils Percent Auto 0.1 % (0-4.4); Hematocrit 26.8 % (37.0-47.0); Hemoglobin 8.8 g/dL (12.0-15.0); Immature Granulocyte Absolute 0.06 K/mm3 (0.00-0.031); Immature Granulocyte Percent A 0.4 % (0-0.5); Lymphocytes Absolute Auto 1.31 K/mm3 (0.9-3.2); Mean Corpuscular HGB Conc 32.8 g/dl (32-36); Mean Corpuscular Hemoglobin 32.2 pg (26-34); Mean Corpuscular Volume 98.2 fl (80-100); Mean Platelet Volume 11.1 fl (7.4-10.4); Monocytes Absolute Auto 0.6 K/mm3 (0.1-0.6); Monocytes Percent Auto 3.9 % (2.6-8.5); Neutrophils Absolute Auto 12.6 K/mm3 (1.3-6.7); Neutrophils Percent Auto 86.4 % (45.5-73.1); Platelet Count Result 107 k/mm3 (150-375); Red Blood Count 2.73 M/mm3 (4.2-5.4); Red Cell Distribution Width 17.6 % (11.5-14.5); White Blood Count 14.6 K/mm3 (4.5-10.0)
--- NOTE | 2023-09-14 06:45 | P.PNOB_ITS ---
OB - PN: Subj Subjective Date/time seen: 09/14/23 06:45 Patient comments: no complaints and pain well controlled baby status: doing well OB - PN: Obj Data Labs 09/14/23 04:38 Labs: Laboratory Results - last 24 hr 09/13/23 09/13/23 09/14/23 06:43 06:44 04:38 WBC 8.8 14.6 H RBC 3.48 L 2.73 L Hgb 11.1 L 8.8 L Hct 33.5 L 26.8 L MCV 96.3 98.2 MCH 31.9 32.2 MCHC 33.1 32.8 RDW 18.2 H 17.6 H Plt Count 117 L 107 L MPV 11.1 H 11.1 H Immature Gran % (Auto) 0.7 H 0.4 Neut % (Auto) 75.6 H 86.4 H Lymph % (Auto) 17.1 L 9.0 L [place] % (Auto) 5.7 3.9 Eos % (Auto) 0.7 0.1 Baso % (Auto) 0.2 0.2 Lymph # (Auto) 1.51 1.31 [place] # (Auto) 0.5 0.6 Eos # (Auto) 0.1 0.0 Baso # (Auto) 0.0 0.0 Abs Immat Gran (auto) 0.06 H 0.06 H Absolute Neuts (auto) 6.7 12.6 H Absolute Nucleated RBC 0.000 0.000 Nucleated RBC % 0.0 0.0 % Immature Plt Fraction 6.0 RPR Non-reactive Blood Type A Positive Antibody Screen Negative OB - PN A/P Plan day: 1 Plan: routine care Comments: start iron Time Spent With Patient Time: Total time spent is greater than 50% in coordination of care (as documented) at patient's floor/unit and/or counseling patient: Time with patient: less than 15 minutes Exam Const: General: cooperative, healthy appearing and comfortable Nutritional Appearance: average body habitus Orientation/consciousness: oriented to person, oriented to place and oriented to time HENMT: Head: normal to inspection Resp: Effort & Inspection: normal respiratory effort GI: Inspection: normal to inspection and incision (cdi)
[2023-09-14] MEDS: ACETAMINOPHEN 325 MG TABLET 650 MG PO ×3 (07:28→19:42)
[2023-09-14] MEDS: KETOROLAC 15 MG/ML VIAL (*BKC) IV PUSH ×3 (07:28→19:42)
[2023-09-14] MEDS: SIMETHICONE 80 MG TAB.CHEW PO ×3 (07:28→19:42)
[2023-09-14] MEDS: POLYSACCHARIDE IRON COMPLEX 150 MG CAPSULE PO ×2 (07:28→19:42)
[2023-09-14] MEDS: DOCUSATE SODIUM 100 MG CAPSULE PO ×2 (07:29→19:42)
[2023-09-14] MEDS: MULTIVIT/MIN/PREN/FOL AC/IRON TABLET 1 TAB PO (07:29)
--- NOTE | 2023-09-14 07:57 | WPDANLDPN2 ---
Anes-Prog Note L&D Date/Time: 09/14/23 07:57 Comfortable throughout: labor and section Neuraxial method: epidural Epidural/Spinal procedure site: clean & non-tender Neuro status: Neuro function grossly intact. Cardiovascular status: normal Respiratory status: normal Airway patency: baseline Mental status: baseline Post-Op hydration status: normal Vital Signs: Last Vital Signs Temp 36.7 C 09/14/23 02:00 Pulse 104 H 09/14/23 02:00 Resp 18 09/14/23 02:00 BP 109/65 09/14/23 02:00 Pulse Ox 98 09/14/23 02:00 O2 Del Method Room Air 09/14/23 02:00 Pain score (VAS): 2 I/O: Intake & Output 09/13/23 09/13/23 09/14/23 15:59 23:59 07:59 Intake Total 700 745.8 Output Total 745 886 Balance 700 0.8 -886 Post-procedural complaints: none Patient feedback: Patient satisfied with anesthetic care.
--- NOTE | 2023-09-14 07:58 | WPDANLDNPN2 ---
Anes-Prog Note L&D-Neuraxial Date/Time: 09/14/23 07:58 Neuraxial medications: epidural PF morphine Opiod-related complaints: none Patient feedback: Patient satisfied with post-operative pain management.
--- NOTE | 2023-09-14 10:14 | PC.NURSE ---
[id number] Introductions were made, then consulted with patient to assess needs related to . Discussed with mother her?plans to feed?her infant and the?experience so far. is less than 12 hours old and demonstrates typical sleepiness and reluctance to breastfeed. Mother was reclined to allow for her to use instincts to find the breast. A nipple shield was introduced on the awake overnight monitor and mother does have pinching injuries to the left breast from nipple shield use. will suck with the nipple shield, however; will not latch appropriately to the shield as to not cause pain to mother. Education was given on the skills of hand expression. Nipples do not rachel completely and the tissue is dense. Infant demonstrates opening wide but does not latch at this time. Encouraged understanding of the benefits of skin to skin (demonstrating unwrapping infant and placing upright on her chest), stimulating with massage touch, changing positions to encourage wakefulness, how to watch for early feeding cues, responsive feeding, feeding on demand (aiming for 8-12 times in 24 hours, about every 2-3 hours), milk production, hand expression, building/maintaining a milk supply, duration of feeding, signs of adequate intake/output and how to record on the feeding sheet. Mother works well with her with encouragement and education. Reviewed positioning and ear, shoulder, hip alignment, supporting the breast to facilitate a deep latch, asymmetrical latch (off-center), leading with the chin with a big, open, wide gape and body close to mother. Mother is tearful and a bit overwhelmed with everything. She is encouraged to talk and release her emotions along with eating breakfast that just arrived. Father of baby is holding , then mother will call when she is ready to practice [id number], laid-back and/or initiate pumping for stimulating and stretching the nipples to protect her milk supply. Resources provided for inpatient and outpatient services with the feeding sheet, mom/baby guide and name written on the communication board. Mother voiced understanding of information and will call if there is a request for assistance. Reported to the Primary RN.
[2023-09-14] MEDS: diphenhydrAMINE HCl INJ 50 MG/ML VIAL (10:21)
--- NOTE | 2023-09-14 11:06 | PC.NURSE ---
[id number] Mother shared that she is wanting to do a few things at a time to learn how to breastfeed and the most important thing is for her to be able to feed her baby. 's blood sugar checked due to infant hasn't latched in 6 hours and is sleepy and reluctant. Resulted at 56mg/dl. has had a large spit up and stool diaper. Encouraged hand expression to help protect milk supply. Breast pump provided due to ineffective and nipple shield use. Instructions given on cleaning, care, usage, that there should be no pain, pumping schedule for milk production, collection, and storage of human milk. Patient was assessed for correct placement, flange size, to pump for comfort and nipple stretching/stimulation for adequate milk production every 3 hours (8 times in 24 hours) 1-2 times at night. Parents are encouraged to record the pumping schedule on the feeding sheet.?Mother voiced understanding of the education shared along with mom/baby guide and the pump measurement, flange fit handout for additional resource information. No colostrum was expressed, however; the nipple everts well and is classified as a grade 1 as they remain everted after the pump is removed. Recommended to mother to consider pumping for 1-2 minutes prior to latching, doing [id number] as much as she is willing and it is safe to do so. The laid-back positioning at first may be a great way to allow to practice instincts that did not get initially after delivery related to the primary section. Reported to the Primary RN.
--- NOTE | 2023-09-14 16:02 | PC.NURSE ---
[id number] Checked in with mother to assess for needs. Mother will call when she is ready to practice and/or pumping. [id number] is [id number] and rarely demonstrates feeding cues. Mother is reclined and is given the opportunity to practice instinctual learning to find the breast. Infant crawls over to the breast but is unable to latch correctly. The nipple shield is not used for the inverted nipples related to the doesn't latch appropriately to the nipple shield. After attempts without a latch mother initiates pumping, father of baby has swaddling and soothing infant demonstrated along with a diaper change. The few drops of colostrum are collected with a clean finger and applied inside infants mouth. While the nipple is everted (grade 1) infant is attempted to the breast. latches at this attempt but doesn't maintain. Discussed with mother to keep practicing [id number], attempting to breastfeed after pulling nipple out with the pump, along with the risks and benefits of supplementing early with an infant that doesn't latch. There's no medical reason at this point to supplement, however; mother can choose to supplement if she desires. Encouraged protecting the milk supply as well. Parents voiced understanding of the education. Reported to the Primary RN.
[2023-09-15] MEDS: ACETAMINOPHEN 325 MG TABLET 650 MG PO ×4 (01:26→20:42)
[2023-09-15] MEDS: IBUPROFEN 600 MG TABLET PO ×4 (01:26→20:43)
[2023-09-15] MEDS: SIMETHICONE 80 MG TAB.CHEW (01:30)
[2023-09-15] MEDS: DOCUSATE SODIUM 100 MG CAPSULE PO ×2 (07:36→16:07)
[2023-09-15] MEDS: MULTIVIT/MIN/PREN/FOL AC/IRON TABLET 1 TAB PO (07:36)
[2023-09-15] MEDS: POLYSACCHARIDE IRON COMPLEX 150 MG CAPSULE PO ×2 (07:36→16:06)
[2023-09-15] MEDS: SIMETHICONE 80 MG TAB.CHEW PO ×2 (07:37→14:43)
--- NOTE | 2023-09-15 11:07 | PM.OBPNVD ---
OB - PN: Subj Subjective Date/time seen: 09/15/23 11:07 Patient comments: no complaints and pain well controlled baby status: doing well OB - PN: Obj Data Labs 09/14/23 04:38 OB - PN A/P Plan day: 2 Plan: routine care Time Spent With Patient Time: Total time spent is greater than 50% in coordination of care (as documented) at patient's floor/unit and/or counseling patient: Exam Narrative: inc c/d/i : Bimanual exam- vagina & uterus: other (Uterus firm, nt @U)
[2023-09-15 20:00] VITALS: BP 136/70; PULSE 112; RESP 18; TEMP 36.7; O2SAT 100
[2023-09-16] MEDS: ACETAMINOPHEN 325 MG TABLET 650 MG PO ×2 (02:59→09:43)
[2023-09-16] MEDS: IBUPROFEN 600 MG TABLET PO ×2 (03:00→09:44)
[2023-09-16 07:39] VITALS: BP 110/69; PULSE 80; RESP 18; TEMP 36.9; O2SAT 100
--- NOTE | 2023-09-16 08:00 | PM.OBPNVD ---
OB - PN: Subj Subjective Date/time seen: 09/16/23 08:00 Patient comments: no complaints and pain well controlled baby status: doing well OB - PN: Obj Data Labs 09/14/23 04:38 OB - PN A/P Plan day: 3 Plan: routine care, discharge home and other (call office for appt. ) Time Spent With Patient Time: Total time spent is greater than 50% in coordination of care (as documented) at patient's floor/unit and/or counseling patient: Exam : Bimanual exam- vagina & uterus: other (Uterus firm, nt @U)
[2023-09-16] MEDS: MULTIVIT/MIN/PREN/FOL AC/IRON TABLET 1 TAB PO (09:41)
[2023-09-16] MEDS: POLYSACCHARIDE IRON COMPLEX 150 MG CAPSULE PO (09:42)
[2023-09-16 09:43] VITALS: BP 116/72; PULSE 105; RESP 18; TEMP 36.8; O2SAT 100
[2023-09-16] MEDS: SIMETHICONE 80 MG TAB.CHEW PO (09:43)
--- NOTE | 2023-09-16 16:02 | PC.NURSE ---
1100 Patient viewed the discharge video Mother & Baby Care, The First Two Weeks . Patient was given the opportunity and encouraged to ask questions. Patient verbalized understanding of information shared and has been given the mother/baby guide for home reference.
[2023-09-17 15:51] VITALS: BP 118/83; PULSE 100; RESP 18; TEMP 36.3; O2SAT 100
--- NOTE | 2023-09-19 07:23 | WPDHPUPDATE1 ---
History and Physical Update Update Date/Time: 09/19/23 07:23 History and Physical has been reviewed, including an updated exam of the patient. There are NO changes in the patient's condition. Risks, benefits, and alternatives have been discussed and questions answered. Patient agrees to proceed with procedure. heart tones were low the node was recovered no change in cervix will proceed with low-transverse section risks and benefits
== END 2023-09-16 15:35 | disposition home or self-care (01) | DRG 788 ==
LOC: ANHLDR 21:40 → ANHOB2 09-16 11:51 → ANHLDR 09-18 13:26 → ANHOB2 09-18 13:26
PROVIDERS: Admitting Provider Obstetrics & Gynecology; Visit Provider Obstetrics & Gynecology Gynecology
PROC: 10D00Z1 Extraction of Products of Conception, Low, Open Approach (ICD-10-PCS; CPT 59514; principal; 2023-09-13 21:35)
DX: O76 Abnormality in fetal heart rate and rhythm complicating labor and delivery (principal); Z3A.39 39 weeks gestation of pregnancy; Z37.0 Single live birth
CPT/HCPCS: 36415; 85025; 85055; 86592; 86850; 86900; 86901; A9270; J0690; J1200; J1885; J2175; J2210; J2274; J2371; J2405; J2590; J2795; J7120